=== PATIENT | female | born 1990 | race Caucasian/White ===

== ENCOUNTER → 2017-09-03 | Outpatient (CLI) | payer BC ==
[~2017-09-03] MED LIST: GADOBUTROL 7.5 MMOL/7.5 ML PFS ONE
== END | disposition home or self-care (01) ==
LOC: CFH 08:57
PROVIDERS: ATTEND Family Medicine
DX: H53.2 Diplopia (principal); H42 Glaucoma in diseases classified elsewhere; R53.83 Other fatigue
CPT/HCPCS: 70553; A9585